=== PATIENT | female | born 1935 | race Caucasian/White ===

== ENCOUNTER 2018-03-27 14:20 | Emergency (ER) | payer MEDICARE, BC ==
[2018-03-27 14:38] VITALS: BP 119/75
[2018-03-27 15:11] LABS: CHLORIDE,CL 98 mEq/L (98-106); SODIUM,NA 133 mEq/L (136-145)
--- NOTE | 2018-03-27 16:16 | EDM.PDOC ---
ED HPI GENERAL MEDICAL PROBLEM - General Chief Complaint: Syncope Stated Complaint: ALMOST PASSED OUT Time Seen by Provider: 03/27/18 15:05 - History of Present Illness INITIAL COMMENTS - FREE TEXT/NARRATIVE: Rosamaria is an 82 year old female who presents to the ED with c/o a near syncopal episode this afternoon. She reports she was at the salon getting her hair done. She reports she was sitting in the chair when she began to feel faint and noticed her vision go black. She denies any LOC. Reports she "did not pass out, but was close." She reports she remembers the entire event. Denies any chest pain, shortness of breath, dizziness, confusion, abdominal pain, urinary symptoms. Does report she is nauseated. Has not vomited. She reports that she was recently diagnosed with shingles of her LLE. She has been having significant pain. She was recently seen in [place] and started on gabapentin and Valtrex. She reports the pain is so bad that she has not been able to sleep the past few nights. She has been feeling fatigued due to this. Onset: Today, Sudden Onset Date: 03/27/18 Onset Time: 13:00 Duration: Resolved Prior to Arrival Associated Symptoms: Reports: Nausea/Vomiting (nausea, no vomiting). Denies: Confusion, Chest Pain, Cough, cough w sputum, Diaphoresis, Fever/Chills, Headaches, Loss of Appetite, Malaise, Rash, Seizure, Shortness of Breath, Syncope, Weakness Treatments STEWARD/STEWARDESS NIGHT: Reports: Acetaminophen Back Pain Score (Numeric/FACES): 4 - Related Data Allergies Allergy/AdvReac Type Severity Reaction Status Date / Time erythromycin base Allergy Nausea Verified 03/27/18 14:45 [Erythromycin Base] fentanyl Allergy Nausea and Verified 03/27/18 14:45 Vomiting bandages Allergy Intermediate Hives Uncoded 03/27/18 14:45 Latex gloves Allergy Hives Uncoded 03/27/18 14:45 Home Meds: Home Meds Acetaminophen [Tylenol] 500 mg PO DAILY PRN 10/20/15 [History] Aspirin [Halfprin] 81 mg PO BRK 10/20/15 [History] Calcium Carbonate/Vitamin D2 [Calcium Oys Shell 250 MG] 1 tab PO DAILY 10/20/15 [History] Fluticasone Furoate [Arnuity Ellipta] 100 mcg IH DAILY PRN 10/20/15 [History] Ipratropium [place] [Atrovent] 15 ml NS DAILY PRN 10/20/15 [History] Loratadine [Claritin] 10 mg PO DAILY PRN 10/20/15 [History] Magnesium Hydroxide [Milk of Magnesia] 400 mg PO DAILY PRN 10/20/15 [History] Olopatadine HCl [Patanase] 1 spray NS DAILY PRN 10/20/15 [History] Pantoprazole [Protonix] 40 mg PO ACBREAKFAST 10/20/15 [History] Polyethylene Glycol 3350 [MiraLAX] 17 gm PO DAILY 10/20/15 [History] Simvastatin [Zocor] 10 mg PO BEDTIME 10/20/15 [History] Triamcinolone Acetonide [Nasacort] 10.8 ml NS DAILY PRN 10/20/15 [History] Zolpidem Tartrate [Ambien] 5 mg PO BEDTIME PRN 10/20/15 [History] amLODIPine [Norvasc] 5 mg PO DAILY 10/20/15 [History] methylPREDNISolone acetate [Methylprednisolone Acetate] 40 mg IJ Q360D PRN 10/19 [History] Acetaminophen with Codeine [Tylenol with Codeine #3 Tablet] 1 tab PO Q6HR PRN [History] Gabapentin [Neurontin] 100 mg PO TID 03/27/18 [History] Metoprolol Succinate 25 mg PO DAILY 03/27/18 [History] Sucralfate 1 gm PO DAILY PRN 03/27/18 [History] Past Medical History HEENT History: Reports: Hard of Hearing Cardiovascular History: Reports: Hypertension Respiratory History: Reports: Asthma Gastrointestinal History: Reports: Other (See Below) Genitourinary History: Reports: None 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 - Physical Exam Exam: See Below Exam Limited By: No Limitations General Appearance: Alert, WD/WN, No Apparent Distress Eye Exam: Bilateral Eye: EOMI, Normal Fundi, Normal Inspection, PERRL Ears: Normal External Exam, Normal Canal, Hearing Grossly Normal, Normal TMs Nose: Normal Inspection, Normal Mucosa, No Blood Throat/Mouth: Normal Inspection, Normal Lips, Normal Teeth, Normal Gums, Normal Oropharynx, Normal Voice, No Airway Compromise Head Exam: Atraumatic, Normocephalic Neck: Normal Inspection, Supple, Non-Tender, Full Range of Motion Respiratory/Chest: No Respiratory Distress, Lungs Clear, Normal Breath Sounds, No Accessory Muscle Use, Chest Non-Tender Cardiovascular: Normal Peripheral Pulses, Regular Rate, Rhythm, No Edema, No Gallop, No JVD, No Murmur, No Rub GI/Abdominal: Normal Bowel Sounds, Soft, Non-Tender, No Organomegaly, No Distention, No Abnormal Bruit, No Mass Neuro Exam (Abbreviated): Alert, Oriented, CN II-XII Intact, Normal Cognition, Normal Gait, Normal Reflexes, No Motor/Sensory Deficits Back Exam: Normal Inspection, Full Range of Motion. No: CVA Tenderness (L), CVA Tenderness (R) Extremities: Normal Inspection, Normal Range of Motion, Non-Tender, No Pedal Edema, Normal Capillary Refill Psychiatric: Normal Affect, Normal Mood Skin Exam: Warm, Dry, Intact, Normal Color, No Rash Course - Vital Signs Last Recorded V/S: Last Vital Signs Temp 96.8 F 03/27/18 14:35 Pulse 70 03/27/18 14:35 Resp 16 03/27/18 14:35 BP 119/75 03/27/18 14:35 Pulse Ox 97 03/27/18 14:35 - Orders/Labs/Meds Orders: Active Orders 24 hr Category Date Time Status CULTURE URINE [RM] Routine Lab 03/27/18 15:55 Received UA W/MICROSCOPIC [URIN] Stat Lab 03/27/18 15:42 Ordered Labs: Laboratory Tests 03/27/18 03/27/18 03/27/18 Range/Units 14:43 14:43 15:42 WBC 7.3 (5.0-10.0) 10^3/uL RBC 4.64 (4.00-5.50) 10^6/uL Hgb 13.9 (12.0-16.0) g/dL Hct 41.5 (37.0-47.0) % MCV 89.4 (82.0-94.0) fL MCH 30.0 (27.0-32.0) pg MCHC 33.5 (33.0-38.0) g/dL RDW Coeff of Alejandra 14.7 (11.0-15.0) % Plt Count 243 (150-400) 10^3/uL Neut % (Auto) 66.9 (35-85) % Lymph % (Auto) 21.1 (10-55) % [place] % (Auto) 9.9 (0-16) % Eos % (Auto) 1.6 (0-5) % Baso % (Auto) 0.5 (0-3) % Neut # (Auto) 4.88 (1.80-7.00) 10^3/uL Lymph # (Auto) 1.54 (1.00-4.80) 10^3/uL [place] # (Auto) 0.72 (0.00-0.80) 10^3/uL Eos # (Auto) 0.12 (0.00-0.45) 10^3/uL Baso # (Auto) 0.04 10^3/uL Sodium 133 L (136-145) mEq/L Potassium 3.8 (3.5-5.0) mEq/L Chloride 98 (98-106) mEq/L Carbon Dioxide 30 (21-32) mmol/L BUN 18 (7-18) mg/dL Creatinine 0.9 (0.6-1.0) mg/dL Est Cr Clr Drug Dosing 34.02 mL/min Estimated GFR (MDRD) 60 (>=60) mL/min Glucose 130 H D (75-99) mg/dL Calcium 9.0 (8.4-10.1) mg/dL Total Bilirubin 0.3 (0.0-1.0) mg/dL AST 20 (15-37) U/L ALT 21 (12-78) U/L Alkaline Phosphatase 67 (46-116) U/L Troponin I < 0.017 (0.00-0.06) ng/mL C-Reactive Protein < 0.2 L (0.2-0.8) mg/dL Total Protein 7.1 (6.4-8.2) g/dL Albumin 3.5 (3.4-5.0) g/dL Urine Color Yellow (YELLOW) Urine Appearance Clear (CLEAR) Urine pH 7.0 (4.5-8.0) Ur Specific [place] 1.020 (1.003-1.020) Urine Protein Negative (NEGATIVE) mg/dL Urine Glucose (UA) Negative (NEGATIVE) mg/dL Urine Ketones Negative (NEGATIVE) mg/dL Urine Occult Blood Trace-lysed H (NEGATIVE) Urine Nitrite Negative (NEGATIVE) Urine Bilirubin Negative (NEGATIVE) Urine Urobilinogen 0.2 (0.2-1.0) EU/dL Ur Leukocyte Esterase Moderate H (NEGATIVE) Urine RBC Not seen (0-5) /HPF Urine WBC 10-20 H (0-5) /HPF Ur Squamous Epith Cells Few H (NOT SEEN) /HPF Ur Renal Epithelial Cell Occasional H (NOT SEEN) /HPF Urinalysis Comment - Re-Assessments/Exams Free Text/Narrative Re-Assessment/Exam: Discussed lab results and EKG with patient and . All labs stable except positive UA. Slightly decreased sodium. Departure - Departure Time of Disposition: 16:11 Disposition: Home, Self-Care 01 Condition: Fair Clinical Impression: Near syncope UTI (urinary tract infection) Qualifiers: Urinary tract infection type: site unspecified Hematuria presence: without hematuria Qualified Code(s): N39.0 - Urinary tract infection, site not specified Shingles outbreak Qualifiers: Herpes zoster complications: without complications Qualified Code(s): B02.9 - Zoster without complications - Discharge Information *PRESCRIPTION DRUG MONITORING PROGRAM REVIEWED*: Not Applicable *COPY OF PRESCRIPTION DRUG MONITORING REPORT IN PATIENT [place]LOY[place]: Not Applicable Instructions: Shingles, [id number], Urinary Tract Infection, Adult, Easy-to- Read, Near-Syncope, [id number] Referrals: Kevin Ibarra MD [Primary Care Provider] - Forms: ED Department Discharge Additional Instructions: EKG shows normal sinus rhythm Labs all stable except questionable UTI Antibiotics twice daily for 5 days. Will notify patient of culture results. Continue medications for shingles. May decrease dose of gabapentin to twice daily Push fluids Change positions slowly Follow up in clinic for recheck if symptoms worsen or do not improve ER for any emergent needs - My Orders Last 24 Hours: My Active Orders 03/27/18 15:42 UA W/MICROSCOPIC [URIN] Stat 03/27/18 15:55 CULTURE URINE [RM] Routine - Assessment/Plan Last 24 Hours: My Active Orders 03/27/18 15:42 UA W/MICROSCOPIC [URIN] Stat 03/27/18 15:55 CULTURE URINE [RM] Routine
== END 2018-03-27 16:25 | disposition home or self-care (01) ==
LOC: CC.ED 14:20
DX: R55 Syncope and collapse (principal); N39.0 Urinary tract infection, site not specified; B02.9 Zoster without complications; I10 Essential (primary) hypertension; J45.909 Unspecified asthma, uncomplicated; Z88.1 Allergy status to other antibiotic agents; Z79.82 Long term (current) use of aspirin; Z79.899 Other long term (current) drug therapy; Z91.040 Latex allergy status
CPT/HCPCS: 36415; 80053; 81001; 84484; 85025; 86140; 87086; 87088; 93005; 99284

== ENCOUNTER 2018-10-12 23:58 | Emergency (ER) | payer MEDICARE, BC ==
--- NOTE | 2018-10-13 01:05 | EDM.PDOC ---
ED HPI GENERAL MEDICAL PROBLEM - General Chief Complaint: Cardiovascular Problem Stated Complaint: "worried about my blood pressure" Time Seen by Provider: 10/13/18 00:55 Source of Information: Reports: Patient History Limitations: Reports: No Limitations - History of Present Illness INITIAL COMMENTS - FREE TEXT/NARRATIVE: Rosamaria is an 83 year old female who presents to the ED with c/o elevated BP. She reports she took her BP this evening and got reading of 150s systolic. Then reports she tried to go to bed but woke up a few hours later and rechecked her BP and it was 174/96, so she thought she better come to ED. Reports she has been doctoring recently for fluctuating BP. Did have recent nuclear med stress test that was normal. Reports she was recently taken off her 2.5 mg amlodipine and had metoprolol increased. Reports she has had "nothing but issues since stopping that." She denies any symptoms at time of presentation. Reports she is "just worried about a stroke." Denies any chest pain, shortness of breath, N/V/D , dizziness, headache, vision changes. - Related Data Allergies Allergy/AdvReac Type Severity Reaction Status Date / Time erythromycin base Allergy Nausea Verified 10/13/18 00:07 [Erythromycin Base] fentanyl Allergy Nausea and Verified 10/13/18 00:07 Vomiting bandages Allergy Intermediate Hives Uncoded 03/27/18 14:45 Latex gloves Allergy Hives Uncoded 03/27/18 14:45 Home Meds: Home Meds Aspirin [Halfprin] 81 mg PO ASDIRECTED 10/20/15 [History] Calcium Carbonate/Vitamin D2 [Calcium Oys Shell 250 MG] 1 tab PO DAILY 10/20/15 [History] Fluticasone Furoate [Arnuity Ellipta] 100 mcg IH DAILY PRN 10/20/15 [History] Ipratropium [place] [Atrovent] 15 ml NS DAILY PRN 10/20/15 [History] Loratadine [Claritin] 10 mg PO DAILY PRN 10/20/15 [History] Magnesium Hydroxide [Milk of Magnesia] 400 mg PO DAILY PRN 10/20/15 [History] Pantoprazole [Protonix] 40 mg PO ACBREAKFAST 10/20/15 [History] Polyethylene Glycol 3350 [MiraLAX] 17 gm PO DAILY 10/20/15 [History] Simvastatin [Zocor] 10 mg PO BEDTIME 10/20/15 [History] Zolpidem Tartrate [Ambien] 5 mg PO BEDTIME PRN 10/20/15 [History] Acetaminophen with Codeine [Tylenol with Codeine #3 Tablet] 1 tab PO Q6HR PRN [History] Metoprolol Succinate 25 mg PO DAILY 03/27/18 [History] Cholecalciferol (Vitamin D3) [Vitamin D3] 2,000 unit PO DAILY 10/13/18 [History] Past Medical History HEENT History: Reports: Cataract, Hard of Hearing, Sinusitis Cardiovascular History: Reports: High Cholesterol, Hypertension Respiratory History: Reports: Asthma Gastrointestinal History: Reports: Diverticulosis, GERD, Hiatal Hernia, Inflammatory Bowel Disease Genitourinary History: Reports: None 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 Musculoskeletal History: Reports: Arthritis, Back Pain, Chronic Psychiatric History: Reports: None Oncologic (Cancer) History: Reports: Squamous Cell Carcinoma - Infectious Disease History Infectious Disease History: Reports: Shingles - Past Surgical History HEENT Surgical History: Reports: Cataract Surgery Cardiovascular Surgical History: Reports: None Respiratory Surgical History: Reports: None GI Surgical History: Reports: Appendectomy, Cholecystectomy, Colonoscopy Musculoskeletal Surgical History: Reports: None Social & Family History - Family History Family Medical History: Noncontributory - Tobacco Use Smoking Status *Q: Never Smoker - Caffeine Use Caffeine Use: Reports: Tea ED ROS GENERAL - Review of Systems Review Of Systems: ROS reveals no pertinent complaints other than HPI. ED EXAM, GENERAL - Physical Exam Exam: See Below Exam Limited By: No Limitations General Appearance: Alert, WD/WN, No Apparent Distress Head: Atraumatic, Normocephalic Neck: Normal Inspection, Supple, Non-Tender, Full Range of Motion Respiratory/Chest: No Respiratory Distress, Lungs Clear, Normal Breath Sounds, No Accessory Muscle Use, Chest Non-Tender Cardiovascular: Normal Peripheral Pulses, Regular Rate, Rhythm, No Edema, No Gallop, No JVD, No Murmur, No Rub GI/Abdominal: Normal Bowel Sounds, Soft, Non-Tender, No Organomegaly, No Distention, No Abnormal Bruit, No Mass Extremities: Normal Inspection, Normal Range of Motion, Non-Tender, Normal Capillary Refill, No Pedal Edema Neurological: Alert, Oriented, CN II-XII Intact, Normal Cognition, Normal Reflexes, No Motor/Sensory Deficits Psychiatric: Anxious Skin Exam: Warm, Dry, Intact, Normal Color, No Rash Course - Vital Signs Last Recorded V/S: Last Vital Signs Temp 96.5 F 10/13/18 01:21 Pulse 58 L 10/13/18 01:21 Resp 16 10/13/18 01:21 BP 158/73 H 10/13/18 01:21 Pulse Ox 100 10/13/18 01:21 - Orders/Labs/Meds Orders: Active Orders 24 hr Category Date Time Status EKG Documentation Completion [RC] STAT Care 10/13/18 00:24 Active Labs: Laboratory Tests 10/13/18 10/13/18 10/13/18 Range/Units 00:25 00:28 00:50 WBC 5.9 (5.0-10.0) 10^3/uL RBC 4.59 (4.00-5.50) 10^6/uL Hgb 14.1 (12.0-16.0) g/dL Hct 41.9 (37.0-47.0) % MCV 91.3 (82.0-94.0) fL MCH 30.7 (27.0-32.0) pg MCHC 33.7 (33.0-38.0) g/dL RDW Coeff of Alejandra 13.8 (11.0-15.0) % Plt Count 241 (150-400) 10^3/uL Neut % (Auto) 47.3 (35-85) % Lymph % (Auto) 35.3 (10-55) % [place] % (Auto) 12.8 (0-16) % Eos % (Auto) 3.7 (0-5) % Baso % (Auto) 0.9 (0-3) % Neut # (Auto) 2.78 (1.80-7.00) 10^3/uL Lymph # (Auto) 2.07 (1.00-4.80) 10^3/uL [place] # (Auto) 0.75 (0.00-0.80) 10^3/uL Eos # (Auto) 0.22 (0.00-0.45) 10^3/uL Baso # (Auto) 0.05 10^3/uL Sodium 137 (136-145) mEq/L Potassium 4.1 (3.5-5.0) mEq/L Chloride 100 (98-106) mEq/L Carbon Dioxide 31 (21-32) mmol/L BUN 19 H (7-18) mg/dL Creatinine 0.9 (0.6-1.0) mg/dL Est Cr Clr Drug Dosing 33.42 mL/min Estimated GFR (MDRD) 60 (>=60) mL/min Glucose 101 H (75-99) mg/dL Calcium 9.3 (8.4-10.1) mg/dL Troponin I < 0.017 (0.00-0.06) ng/mL Urine Color Light yellow (YELLOW) Urine Appearance Clear (CLEAR) Urine pH 7.0 (4.5-8.0) Ur Specific [place] 1.010 (1.003-1.020) Urine Protein Negative (NEGATIVE) mg/dL Urine Glucose (UA) Negative (NEGATIVE) mg/dL Urine Ketones Negative (NEGATIVE) mg/dL Urine Occult Blood Trace-intact H (NEGATIVE) Urine Nitrite Negative (NEGATIVE) Urine Bilirubin Negative (NEGATIVE) Urine Urobilinogen 0.2 (0.2-1.0) EU/dL Ur Leukocyte Esterase Negative (NEGATIVE) Urine RBC Not seen (0-5) /HPF Urine WBC Not seen (0-5) /HPF Departure - Departure Time of Disposition: 01:26 Disposition: Home, Self-Care 01 Condition: Good Clinical Impression: Hypertension Qualifiers: Hypertension type: essential hypertension Qualified Code(s): I10 - Essential ( primary) hypertension Instructions: Hypertension, [id number] Referrals: Kevin Ibarra MD [Primary Care Provider] - Forms: ED Department Discharge Additional Instructions: 1) Restart 2.5 mg amlodipine daily 2) Follow up with PCP in clinic for recheck BP this week 3) Return to ED for emergent needs - My Orders Last 24 Hours: My Active Orders 10/13/18 00:24 EKG Documentation Completion [RC] STAT - Assessment/Plan Last 24 Hours: My Active Orders 10/13/18 00:24 EKG Documentation Completion [RC] STAT
[2018-10-13 01:18] LABS: CHLORIDE,CL 100 mEq/L (98-106); SODIUM,NA 137 mEq/L (136-145)
[2018-10-13 01:22] VITALS: BP 158/73
== END 2018-10-13 01:30 | disposition home or self-care (01) ==
LOC: CC.ED 23:58
DX: I10 Essential (primary) hypertension (principal); M19.90 Unspecified osteoarthritis, unspecified site; Z79.82 Long term (current) use of aspirin; Z79.899 Other long term (current) drug therapy; Z98.49 Cataract extraction status, unspecified eye; Z90.49 Acquired absence of other specified parts of digestive tract; Z91.040 Latex allergy status; Z88.1 Allergy status to other antibiotic agents; Z88.8 Allergy status to other drugs, medicaments and biological substances
CPT/HCPCS: 36415; 80048; 81001; 84484; 85025; 93005; 93010; 99283; 99283-25

== ENCOUNTER 2019-05-22 15:45 | Emergency (ER) | payer MEDICARE, BC ==
[2019-05-22 15:53] VITALS: BP 139/64; PULSE 70
[2019-05-22 15:56] LABS: CHLORIDE,CL 97 mEq/L (98-106); SODIUM,NA 133 mEq/L (136-145)
--- NOTE | 2019-05-22 15:58 | EDM.PDOC ---
ED HPI GENERAL MEDICAL PROBLEM - General Chief Complaint: Abdominal Pain Stated Complaint: abd pain Time Seen by Provider: 05/22/19 15:48 Source of Information: Reports: Patient History Limitations: Reports: No Limitations - History of Present Illness INITIAL COMMENTS - FREE TEXT/NARRATIVE: Rosamaria is an 83 year old female who presents to the ED with c/o ongoing abdominal pain. She was seen and evaluated for same issue 2 days prior. Was directed to start Probiotics, but reports she has not done so. SHe reports "I dont know if its inflammation or infection but my stomach just doesn't feel right." She is well known to department and this issue has been ongoing for some time now. She has had recent lab workup as well as CT abd/pelvis. Does have history of diverticulitis. She reports she "just thinks she needs cipro." Denies any fever, chills, nausea, vomiting, constipation, urinary symptoms, chest pain, shortness of breath. She reports she "just doesn't feel right." She reports she has some "diarrhea, but not loose stools." Onset: Gradual Duration: Chronic Location: Reports: Abdomen Associated Symptoms: Reports: Loss of Appetite, Malaise. Denies: Chest Pain, Cough, cough w sputum, Fever/Chills, Nausea/Vomiting Left Lower Abdominal Pain Score (Numeric/FACES): 5 - Related Data Allergies Allergy/AdvReac Type Severity Reaction Status Date / Time erythromycin base Allergy Nausea Verified 05/22/19 15:53 [Erythromycin Base] fentanyl Allergy Nausea and Verified 05/22/19 15:53 Vomiting bandages Allergy Intermediate Hives Uncoded 05/22/19 15:53 Latex gloves Allergy Hives Uncoded 05/22/19 15:53 Home Meds: Home Meds Aspirin [Halfprin] 81 mg PO ASDIRECTED 10/20/15 [History] Calcium Carbonate/Vitamin D2 [Calcium Oys Shell 250 MG] 2 tab PO DAILY 10/20/15 [History] Fluticasone Furoate [Arnuity Ellipta] 100 mcg IH DAILY PRN 10/20/15 [History] Ipratropium [place] [Atrovent] 15 ml NS DAILY PRN 10/20/15 [History] Loratadine [Claritin] 10 mg PO DAILY PRN 10/20/15 [History] Magnesium Hydroxide [Milk of Magnesia] 400 mg PO DAILY PRN 10/20/15 [History] Pantoprazole [Protonix] 40 mg PO ACBREAKFAST 10/20/15 [History] Polyethylene Glycol 3350 [MiraLAX] 17 gm PO DAILY 10/20/15 [History] Simvastatin [Zocor] 10 mg PO BEDTIME 10/20/15 [History] Metoprolol Succinate 25 mg PO DAILY 03/27/18 [History] Melatonin 5 mg PO BEDTIME PRN 05/22/19 [History] Sucralfate 1 tab PO TID 05/22/19 [History] Past Medical History HEENT History: Reports: Cataract, Hard of Hearing, Sinusitis Cardiovascular History: Reports: High Cholesterol, Hypertension Respiratory History: Reports: Asthma Gastrointestinal History: Reports: Diverticulosis, GERD, Hiatal Hernia, Inflammatory Bowel Disease Genitourinary History: Reports: None 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 Musculoskeletal History: Reports: Arthritis, Back Pain, Chronic Psychiatric History: Reports: None Oncologic (Cancer) History: Reports: Squamous Cell Carcinoma - Infectious Disease History Infectious Disease History: Reports: Shingles - Past Surgical History HEENT Surgical History: Reports: Cataract Surgery Cardiovascular Surgical History: Reports: None Respiratory Surgical History: Reports: None GI Surgical History: Reports: Appendectomy, Cholecystectomy, Colonoscopy Musculoskeletal Surgical History: Reports: None Social & Family History - Family History Family Medical History: Noncontributory - Caffeine Use Caffeine Use: Reports: Tea ED ROS GENERAL - Review of Systems Review Of Systems: ROS reveals no pertinent complaints other than HPI. ED EXAM, GI/ABD - Physical Exam Exam: See Below Exam Limited By: No Limitations General Appearance: Alert, WD/WN, No Apparent Distress Throat/Mouth: Normal Inspection, Normal Lips, Normal Teeth, Normal Gums, Normal Oropharynx, Normal Voice, No Airway Compromise Head: Atraumatic, Normocephalic Neck: Normal Inspection, Supple, Non-Tender, Full Range of Motion Respiratory/Chest: No Respiratory Distress, Lungs Clear, Normal Breath Sounds, No Accessory Muscle Use, Chest Non-Tender Cardiovascular: Normal Peripheral Pulses, Regular Rate, Rhythm, No Edema, No Gallop, No JVD, No Murmur, No Rub GI/Abdominal Exam: Normal Bowel Sounds, Soft, No Distention, No Mass, Tender ( generalized) Back Exam: Normal Inspection, Full Range of Motion. No: CVA Tenderness (L), CVA Tenderness (R) Extremities: Normal Inspection, Normal Range of Motion, Non-Tender, Normal Capillary Refill, No Pedal Edema Neurological: Alert, Oriented, CN II-XII Intact, Normal Cognition, Normal Gait, Normal Reflexes, No Motor/Sensory Deficits Psychiatric: Anxious Skin Exam: Warm, Dry, Intact, Normal Color, No Rash Lymphatic: No Adenopathy Course - Vital Signs Last Recorded V/S: Last Vital Signs Temp 96.4 F 05/22/19 15:48 Pulse 70 05/22/19 15:48 Resp 16 05/22/19 15:48 BP 139/64 05/22/19 15:48 Pulse Ox 98 05/22/19 15:48 - Orders/Labs/Meds Labs: Laboratory Tests 05/22/19 05/22/19 05/22/19 Range/Units 15:47 15:47 15:47 WBC 7.1 (5.0-10.0) 10^3/uL RBC 4.48 (4.00-5.50) 10^6/uL Hgb 13.8 (12.0-16.0) g/dL Hct 40.7 (37.0-47.0) % MCV 90.8 (82.0-94.0) fL MCH 30.8 (27.0-32.0) pg MCHC 33.9 (33.0-38.0) g/dL RDW Coeff of Alejandra 13.8 (11.0-15.0) % Plt Count 281 (150-400) 10^3/uL Neut % (Auto) 67.1 (35-85) % Lymph % (Auto) 19.3 (10-55) % [place] % (Auto) 10.5 (0-16) % Eos % (Auto) 2.7 (0-5) % Baso % (Auto) 0.4 (0-3) % Neut # (Auto) 4.77 (1.80-7.00) 10^3/uL Lymph # (Auto) 1.37 (1.00-4.80) 10^3/uL [place] # (Auto) 0.75 (0.00-0.80) 10^3/uL Eos # (Auto) 0.19 (0.00-0.45) 10^3/uL Baso # (Auto) 0.03 10^3/uL Sodium 133 L (136-145) mEq/L Potassium 4.9 (3.5-5.0) mEq/L Chloride 97 L (98-106) mEq/L Carbon Dioxide 28 (21-32) mmol/L BUN 20 H (7-18) mg/dL Creatinine 0.9 (0.6-1.0) mg/dL Est Cr Clr Drug Dosing 33.42 mL/min Estimated GFR (MDRD) 60 (>=60) mL/min Glucose 103 H (75-99) mg/dL Calcium 9.2 (8.4-10.1) mg/dL Total Bilirubin 0.2 (0.0-1.0) mg/dL AST 21 (15-37) U/L ALT 15 (12-78) U/L Alkaline Phosphatase 59 (46-116) U/L C-Reactive Protein < 0.2 L (0.2-0.8) mg/dL Total Protein 7.2 (6.4-8.2) g/dL Albumin 3.6 (3.4-5.0) g/dL Urine Color Yellow (YELLOW) Urine Appearance Clear (CLEAR) Urine pH 6.5 (4.5-8.0) Ur Specific [place] 1.020 (1.003-1.020) Urine Protein Negative (NEGATIVE) mg/dL Urine Glucose (UA) Negative (NEGATIVE) mg/dL Urine Ketones Negative (NEGATIVE) mg/dL Urine Occult Blood Trace-intact H (NEGATIVE) Urine Nitrite Negative (NEGATIVE) Urine Bilirubin Negative (NEGATIVE) Urine Urobilinogen 0.2 (0.2-1.0) EU/dL Ur Leukocyte Esterase Small H (NEGATIVE) Urine RBC Not seen (0-5) /HPF Urine WBC 0-5 (0-5) /HPF Ur Squamous Epith Cells Few H (NOT SEEN) /HPF Urine Bacteria Occasional H (NOT SEEN) /HPF Urinalysis Comment - Re-Assessments/Exams Free Text/Narrative Re-Assessment/Exam: Discussed with patient that all labs are stable at this time. Discussed proceeding with Ct abdomen/pelvis, to which patient declines. She reports she "can't do another one of those CTs." Discussed irritable bowel. Patient again asks if she "needs cipro." I discussed with aptient that all infectious markers are normal and I do not feel antibiotics are warranted. Discussed that antibiotics can worsen stomach issues, especially when used unnecessarily. Discussed discharge recommendations with patient. Departure - Departure Time of Disposition: 16:11 Disposition: Home, Self-Care 01 Condition: Good Clinical Impression: Irritable bowel Qualifiers: Irritable bowel syndrome type: unspecified Qualified Code(s): K58.9 - Irritable bowel syndrome without diarrhea - Discharge Information *PRESCRIPTION DRUG MONITORING PROGRAM REVIEWED*: Not Applicable *COPY OF PRESCRIPTION DRUG MONITORING REPORT IN PATIENT LLOYD: Not Applicable Instructions: Diet for Irritable Bowel Syndrome, Irritable Bowel Syndrome, Adult Forms: ED Department Discharge Additional Instructions: - Recommend starting Probiotic daily - [place] diet until symptoms improve - Rest and push fluids - Tylenol as needed for pain - Follow up if symptoms worsen. Discussed that next step would be CT scan, but I do not feel it is warranted at this time.
== END 2019-05-22 16:14 | disposition home or self-care (01) ==
LOC: CC.ED 15:45
DX: K58.9 Irritable bowel syndrome, unspecified (principal); J45.909 Unspecified asthma, uncomplicated; I10 Essential (primary) hypertension; E78.00 Pure hypercholesterolemia, unspecified; K21.9 Gastro-esophageal reflux disease without esophagitis; Z88.1 Allergy status to other antibiotic agents; Z91.040 Latex allergy status; Z91.048 Other nonmedicinal substance allergy status; Z88.5 Allergy status to narcotic agent; Z79.899 Other long term (current) drug therapy; Z79.51 Long term (current) use of inhaled steroids; Z79.82 Long term (current) use of aspirin
CPT/HCPCS: 36415; 80053; 81001; 85025; 86140; 99283

== ENCOUNTER 2020-09-12 09:15 | Emergency (ER) | payer MEDICARE, BC ==
[2020-09-12] MEDS ORDERED: Ondansetron 4 MG/2 ML SDV IVPUSH PRN (09:42)
[2020-09-12] MEDS ORDERED: Sodium Chloride 0.9% 1,000 ML IV SCH (09:45)
[2020-09-12] MEDS ORDERED: cefTRIAXone 1 GM Vial IVPUSH SCH (10:30)
--- NOTE | 2020-09-12 10:45 | EDM.PDOC ---
ED HPI GENERAL MEDICAL PROBLEM - General Chief Complaint: Gastrointestinal Problem Stated Complaint: N/V Time Seen by Provider: 09/12/20 10:01 Source of Information: Reports: Patient History Limitations: Reports: No Limitations - History of Present Illness INITIAL COMMENTS - FREE TEXT/NARRATIVE: Rosamaria is an 85 year old female who presents to ER with complaints of nausea and vomiting and weakness since starting Macrobid yesterday. Was seen by Traci Vogt and found to have an UTI and started on this med. States about an hour after taking it last evening, she got nauseated and started vomiting. Admits to multiple emesis between 9 pm adn 4 am and is now so weak. States had to crawl to her as she was too weak to walk. Was able to ambulate in to ER this am. Has had a small amount of byron caroline since last night at supper. Denies abdominal pain but is sore from vomiting. Admits to dizziness due to "being so dry now". No fevers. No chest pain or shortness of breath. Per lab, UA is showing gram negative rods at this point from culture. Onset: Gradual Duration: Hour(s):, Constant Location: Reports: Abdomen Quality: Reports: Ache Severity: Moderate Improves with: Reports: None Associated Symptoms: Reports: Nausea/Vomiting, Weakness. Denies: Confusion, Chest Pain, Cough, Loss of Appetite - Related Data Allergies Allergy/AdvReac Type Severity Reaction Status Date / Time erythromycin base Allergy Nausea Verified 09/12/20 09:30 [Erythromycin Base] fentanyl Allergy Nausea and Verified 09/12/20 09:30 Vomiting bandages Allergy Intermediate Hives Uncoded 05/22/19 15:53 Latex gloves Allergy Hives Uncoded 05/22/19 15:53 Home Meds: Home Meds Aspirin [Halfprin] 81 mg PO ASDIRECTED 10/20/15 [History] Calcium Carbonate/Vitamin D2 [Calcium Oys Shell 250 MG] 2 tab PO DAILY 10/20/15 [History] Fluticasone Furoate [Arnuity Ellipta] 100 mcg IH DAILY PRN 10/20/15 [History] Ipratropium [place] [Atrovent] 15 ml NS DAILY PRN 10/20/15 [History] Loratadine [Claritin] 10 mg PO DAILY PRN 10/20/15 [History] Magnesium Hydroxide [Milk of Magnesia] 400 mg PO DAILY PRN 10/20/15 [History] Pantoprazole [Protonix] 40 mg PO ACBREAKFAST 10/20/15 [History] Polyethylene Glycol 3350 [MiraLAX] 17 gm PO DAILY 10/20/15 [History] Simvastatin [Zocor] 10 mg PO BEDTIME 10/20/15 [History] Metoprolol Succinate 25 mg PO DAILY 03/27/18 [History] Melatonin 5 mg PO BEDTIME PRN 05/22/19 [History] Sucralfate 1 tab PO TID 05/22/19 [History] Nitrofurantoin [place]/Macrocryst [Nitrofurantoin [place]-MCR] 100 mg PO BID 09/12/20 [History] amLODIPine Besylate [Norvasc] 2.5 mg PO DAILY 09/12/20 [History] Past Medical History HEENT History: Reports: Cataract, Hard of Hearing, Sinusitis Cardiovascular History: Reports: High Cholesterol, Hypertension Respiratory History: Reports: Asthma Gastrointestinal History: Reports: Diverticulosis, GERD, Hiatal Hernia, Inflammatory Bowel Disease Genitourinary History: Reports: None 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 Musculoskeletal History: Reports: Arthritis, Back Pain, Chronic Psychiatric History: Reports: None Oncologic (Cancer) History: Reports: Squamous Cell Carcinoma - Infectious Disease History Infectious Disease History: Reports: Shingles - Past Surgical History HEENT Surgical History: Reports: Cataract Surgery Cardiovascular Surgical History: Reports: None Respiratory Surgical History: Reports: None GI Surgical History: Reports: Appendectomy, Cholecystectomy, Colonoscopy Musculoskeletal Surgical History: Reports: None Social & Family History - Family History Family Medical History: No Pertinent Family History - Tobacco Use Tobacco Use Status *Q: Never Tobacco User - Caffeine Use Caffeine Use: Reports: Tea ED ROS GENERAL - Review of Systems Review Of Systems: See Below Constitutional: Reports: Malaise, Weakness, Fatigue. Denies: Fever, Chills HEENT: Denies: Ear Pain, Sinus Problem, Throat Pain Respiratory: Denies: Shortness of Breath Cardiovascular: Reports: Lightheadedness. Denies: Chest Pain, Edema Endocrine: Reports: Fatigue GI/Abdominal: Reports: Abdominal Pain, Constipation, Nausea, Vomiting : Reports: No Symptoms Musculoskeletal: Reports: No Symptoms Skin: Reports: No Symptoms Neurological: Reports: Weakness ED EXAM, GI/ABD - Physical Exam Exam: See Below Exam Limited By: No Limitations General Appearance: Alert, WD/WN, No Apparent Distress Ears: Normal External Exam, Normal TMs Nose: Normal Inspection, Normal Mucosa, No Blood Throat/Mouth: Normal Inspection, Normal Oropharynx Head: Normocephalic Neck: Normal Inspection, Supple, Non-Tender Respiratory/Chest: No Respiratory Distress, Lungs Clear, Normal Breath Sounds Cardiovascular: Regular Rate, Rhythm GI/Abdominal Exam: Normal Bowel Sounds, Soft, Non-Tender Extremities: Normal Inspection, No Pedal Edema Neurological: Alert, Oriented Skin Exam: Warm, Dry Course - Vital Signs Last Recorded V/S: Last Vital Signs Temp 99.1 F 09/12/20 11:15 Pulse 69 09/12/20 11:15 Resp 16 09/12/20 11:15 BP 108/51 L 09/12/20 11:15 Pulse Ox 98 09/12/20 11:15 - Orders/Labs/Meds Orders: Active Orders 24 hr Category Date Time Status Abdomen 2V AP Flat Upright [CR] Stat Exams 09/12/20 09:41 Taken Labs: Laboratory Tests 09/12/20 09/12/20 Range/Units 09:52 09:52 WBC 7.2 (5.0-10.0) 10^3/uL RBC 4.35 (4.00-5.50) 10^6/uL Hgb 13.7 (12.0-16.0) g/dL Hct 39.6 (37.0-47.0) % MCV 91.0 (82.0-94.0) fL MCH 31.5 (27.0-32.0) pg MCHC 34.6 (33.0-38.0) g/dL RDW Coeff of Alejandra 14.2 (11.0-15.0) % Plt Count 202 (150-400) 10^3/uL Neut % (Auto) 94.0 H (35-85) % Lymph % (Auto) 1.0 L (10-55) % [place] % (Auto) 4.8 (0-16) % Eos % (Auto) 0.1 (0-5) % Baso % (Auto) 0.1 (0-3) % Neut # (Auto) 6.79 (1.80-7.00) 10^3/uL Lymph # (Auto) 0.07 L (1.00-4.80) 10^3/uL [place] # (Auto) 0.35 (0.00-0.80) 10^3/uL Eos # (Auto) 0.01 (0.00-0.45) 10^3/uL Baso # (Auto) 0.01 10^3/uL Sodium 132 L (136-145) mEq/L Potassium 3.9 (3.5-5.0) mEq/L Chloride 97 L (98-106) mEq/L Carbon Dioxide 28 (21-32) mmol/L BUN 16 (7-18) mg/dL Creatinine 1.0 (0.6-1.0) mg/dL Est Cr Clr Drug Dosing 29.01 mL/min Estimated GFR (MDRD) 53 L (>=60) mL/min Glucose 110 H (75-99) mg/dL Calcium 8.8 (8.4-10.1) mg/dL Total Bilirubin 0.5 (0.0-1.0) mg/dL AST 34 (15-37) U/L ALT 27 (12-78) U/L Alkaline Phosphatase 54 (46-116) U/L C-Reactive Protein 2.3 H (0.2-0.8) mg/dL Total Protein 6.9 (6.4-8.2) g/dL Albumin 3.4 (3.4-5.0) g/dL Amylase 48 (25-115) U/L Lipase 70 L (73-393) U/L Meds: Medications Discontinued Medications Generic Name Dose Route Start Last Admin Trade Name Freq PRN Reason Stop Dose Admin Ceftriaxone Sodium 1 gm 09/12/20 10:30 09/12/20 10:37 Rocephin IVPUSH 1 gm Q24H AMADOU Administration Sodium Chloride 1,000 mls @ 100 mls/hr 09/12/20 09:45 09/12/20 10:06 Normal Saline IV 100 mls/hr ASDIRECTED AMADOU Administration Ondansetron HCl 4 mg 09/12/20 09:42 09/12/20 10:06 Zofran IVPUSH 4 mg Q6H PRN Administration Nausea - Re-Assessments/Exams Free Text/Narrative Re-Assessment/Exam: 09/12/20 12:31 Patient has been resting comfortably, drinking fluids. No further vomiting. Labs are all stable. Will give 500 ml of fluid and discharge home. Advised will call patient with culture results tomorrow and determine further treatment once sensitivities are reviewed. Departure - Departure Time of Disposition: 12:32 Disposition: Home, Self-Care 01 Condition: Good Clinical Impression: Medication adverse effect, Constipation - Discharge Information *PRESCRIPTION DRUG MONITORING PROGRAM REVIEWED*: No *COPY OF PRESCRIPTION DRUG MONITORING REPORT IN PATIENT [place]LOY[place]: No Instructions: Constipation, Adult, [id number], Nausea and Vomiting, Adult, [id number] Referrals: Kevin Ibarra MD [Primary Care Provider] - Forms: ED Department Discharge Additional Instructions: 1. Push fluids 2. bland diet 3. Miralax or stool softener 4. We will call you tomorrow with results of the urine culture and determine which medication you will be placed on for further treatment for the UTI. You were given Rocephin today which will cover your infection until that time. 5. Call Dr. Ibarra's office for any further concern Sepsis Event Note (ED) - Evaluation Sepsis Screening Result: No Definite Risk - My Orders Last 24 Hours: My Active Orders 09/12/20 09:41 Abdomen 2V AP Flat Upright [CR] Stat - Assessment/Plan Last 24 Hours: My Active Orders 09/12/20 09:41 Abdomen 2V AP Flat Upright [CR] Stat
[2020-09-12 11:33] VITALS: BP 108/51; PULSE 69
== END 2020-09-12 13:35 | disposition home or self-care (01) ==
LOC: CC.ED 09:15
DX: K59.00 Constipation, unspecified (principal); R11.2 Nausea with vomiting, unspecified; E78.00 Pure hypercholesterolemia, unspecified; I10 Essential (primary) hypertension; J45.909 Unspecified asthma, uncomplicated; K21.9 Gastro-esophageal reflux disease without esophagitis; M19.90 Unspecified osteoarthritis, unspecified site; T37.8X5A Adverse effect of other specified systemic anti-infectives and antiparasitics, initial encounter; Z88.1 Allergy status to other antibiotic agents; Z88.4 Allergy status to anesthetic agent; Z91.040 Latex allergy status; Z91.048 Other nonmedicinal substance allergy status; Z79.82 Long term (current) use of aspirin; Z79.899 Other long term (current) drug therapy
CPT/HCPCS: 36415; 74019; 80053; 82150; 83690; 85025; 86140; 96374; 96375; 99284; 99284-25; J0696; J2405; J7030

== ENCOUNTER 2022-12-24 15:14 | Emergency (ER) | payer MEDICARE, BC ==
[2022-12-24] MEDS: Aspirin 81 MG Tab.Chew PO ONE ×2 (15:35→15:45)
[2022-12-24] MEDS: Nitroglycerin 0.4 MG Tab.SL SL ONE (15:36)
[2022-12-24 15:43] LABS: BASOPHILS ABSOLUTE AUTO 0.06 10^3/uL (0.00-0.50); BASOPHILS PERCENT AUTO 1.2 % (0-1); EOSINOPHILS ABSOLUTE AUTO 0.09 10^3/uL (0.00-1.50); EOSINOPHILS PERCENT AUTO 1.7 % (0-6); HEMATOCRIT 39.8 % (37.0-47.0); HEMOGLOBIN 13.2 g/dL (12.0-16.0); LYMPHOCYTES ABSOLUTE AUTO 1.26 10^3/uL (0.60-5.00); LYMPHOCYTES PERCENT AUTO 24.4 % (24-44); MEAN CORPUSCULAR HEMOGLOBIN 29.9 pg (27.0-32.0); MEAN CORPUSCULAR HGB CONC 33.2 g/dL (32.0-36.0); MEAN CORPUSCULAR VOLUME 90.2 fL (83.0-97.0); MONOCYTES ABSOLUTE AUTO 0.49 10^3/uL (0.00-1.50); MONOCYTES PERCENT AUTO 9.5 % (0-10); NEUTROPHILS ABSOLUTE AUTO 3.27 x10^3/uL (1.80-8.00); NEUTROPHILS PERCENT AUTO 63.2 % (41-71); PLATELET COUNT,PLT 242 10^3/uL (150-400); RED BLOOD CELL COUNT 4.41 x10^6/uL (4.00-5.50); WHITE BLOOD CELL COUNT,WBC 5.2 10^3/uL (4.0-11.0)
[2022-12-24 16:00] LABS: ALANINE AMINOTRANSFERASE,ALT 18 U/L (12-78); ALBUMIN 3.7 g/dL (3.4-5.0); ALKALINE PHOSPHATASE 52 U/L (46-116); ASPARTATE AMNIOTRANSFERASE,AST 21 U/L (15-37); BILIRUBIN TOTAL 0.3 mg/dL (0.0-1.0); BLOOD UREA NITROGEN,BUN 20 mg/dL (7-18); CARBON DIOXIDE,CO2 29 mmol/L (21-32); CHLORIDE,CL 98 mEq/L (98-106); CREATININE 0.9 mg/dL (0.6-1.0); EST CRCL DRUG DOSING (CG) 29.39 mL/min; GLUCOSE RANDOM 98 mg/dL (75-99); LIPASE 116 U/L (73-393); MAGNESIUM 2.2 mg/dL (1.8-2.4); POTASSIUM,K 4.3 mEq/L (3.5-5.0); SODIUM,NA 134 mEq/L (136-145)
[2022-12-24 16:05] LABS: CALCIUM 8.9 mg/dL (8.4-10.1)
[2022-12-24 16:07] LABS: ESTIMATED GFR 61 mL/min (>=60)
[2022-12-24 16:08] LABS: C-REACTIVE PROTEIN < 0.2 mg/dL (0.2-0.8)
[2022-12-24 16:28] VITALS: BP 134/70; PULSE 64
[2022-12-24] MEDS: methylPREDNISolone Acetate 80 MG/ML SDV IM ONE (16:41)
== END 2022-12-24 16:40 | disposition home or self-care (01) ==
LOC: CC.ED 15:14
DX: M94.0 Chondrocostal junction syndrome [Tietze] (principal); E78.00 Pure hypercholesterolemia, unspecified; I10 Essential (primary) hypertension; J45.909 Unspecified asthma, uncomplicated; K21.9 Gastro-esophageal reflux disease without esophagitis; M19.90 Unspecified osteoarthritis, unspecified site; Z88.1 Allergy status to other antibiotic agents; Z88.6 Allergy status to analgesic agent; Z91.048 Other nonmedicinal substance allergy status; Z91.040 Latex allergy status; Z79.82 Long term (current) use of aspirin; Z79.899 Other long term (current) drug therapy; Z20.822 Contact with and (suspected) exposure to COVID-19
CPT/HCPCS: 36415; 71045; 80053; 83690; 83735; 84484; 85025; 86140; 87804; 93005; 93010; 99284; 99285; A9270-GY; U0002